=== PATIENT | male | born 2000 | race Two or more races ===

== ENCOUNTER 2025-03-07 08:44 | Emergency (ER) | payer OTHER, SELFPAY ==
[2025-03-07 08:46] VITALS: BP 110/75; PULSE 59; RESP 14; TEMP 36.5; O2SAT 99
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
[2025-03-07 08:51] VITALS: PULSE 60; O2SAT 90; BMI 25.8
[2025-03-07 09:02] VITALS: BP 115/82; PULSE 72; RESP 19; TEMP 36.5; O2SAT 100
[2025-03-07 09:04] VITALS: BP 115/82; TEMP 36
[2025-03-07] MEDS: levETIRAcetam INJ 100 MG/ML VIAL 5ML 1000 MG IVP (09:15)
--- NOTE | 2025-03-07 09:22 | PC.NURSE ---
PT BROUGHT IN BY EMS FROM [facility]. ACCORDING TO STAFF, THEY WITNESSED MULTIPLE SEIZURE LASTING FOR 10 TO 20 SEC. PT ON SEIZURE PRECAUTIONS.
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
--- NOTE | 2025-03-07 09:27 | PC.NURSE ---
0735: FIRST SEIZURE, LASTED 20 SEC 0736: SECOND SEIZURE, LASTED 7 SEC 0805: THIRD SEIZURE, LASTED 20 SEC 0806: FOURTH SEIZURE, LASTED 15 SEC 0807: FIFTH SEIZURE, LASTED 12 SEC 0808: SIXTH SEIZURE, LASTED 12 SEC 0809: SEVENTH SEIZURE LASTED 15 SEC 0817: EIGHT SEIZURE, LASTED 10 SEC
[2025-03-07 09:30] LABS: Collection Type, Urine Catheter; Squamous Epithelial Cell,Urine 0 /hpf (0-5)
[2025-03-07] MEDS: SODIUM CHLORIDE 0.9% 1000 ML 1,000 ML 200 ML IV (09:34)
[2025-03-07 09:51] LABS: Bacteria,Urine Rare; Bilirubin,Urine Negative (Negative); Blood,Urine Negative (Negative); Color,Urine Yellow (Lt Yel-Yel); Culture Indicated,Urine Not Indicated; Glucose, Urine Negative (Negative); Ketones,Urine Negative (Negative); Leukocyte Esterase,Urine Negative (Negative); Nitrite,Urine Negative (Negative); PH,Urine 6.5 (5.0-7.0); Protein,Urine Negative (Neg - Trace); RBC,Urine 2 /hpf (0-3); Specific Gravity,Urine 1.019 (1.001-1.035); Urobilinogen,Urine Negative mg/dL (0.0-1.0); WBC,Urine 2 /hpf (0-5)
[2025-03-07 09:55] LABS: Clarity,Urine Hazy (Clear/Hazy)
[2025-03-07 10:02] LABS: Lactate (Lactic Acid) 2.1 mMol/L (0.4-2.0)
[2025-03-07 10:09] LABS: Basophils % (Auto) 1 % (0-2.5); Eosinophils # (Auto) 0.3 Thou/mm3 (0.0-0.5); Eosinophils % (Auto) 5 % (0-10); Hematocrit 39.5 % (41.0-53.0); Hemoglobin 13.8 g/dL (13.5-16.0); Immature Granulocytes % (Auto) 0 % (0-0); Immature Granulocytes Auto 0.01 Thou/mm3 (0.00-0.00); Lymphocytes # (Auto) 1.1 Thou/mm3 (1.0-4.8); Lymphocytes % (Auto) 21 % (10-50); Mean Corpuscular HGB Conc 34.9 g/dl (31.0-37.0); Mean Corpuscular Hemoglobin 29.9 pg (25.0-35.0); Mean Corpuscular Volume 86 fL (80-100); Monocytes # (Auto) 0.4 Thou/mm3 (0.0-0.8); Monocytes % (Auto) 8 % (0-12); Neutrophils # (Auto) 3.5 Thou/mm3 (1.8-7.7); Neutrophils % (Auto) 66 % (37-80); Nucleated Red Blood Cell % 0 /100 WBC (0); Platelet Count 174 Thou/mm3 (140-440); RDW Standard Deviation 39.7 fL (35.1-43.9); Red Blood Count 4.61 Miln/mm3 (4.50-5.90); White Blood Count 5.3 Thou/mm3 (3.8-10.6)
[2025-03-07 10:44] LABS: Alanine Aminotransferase 17 U/L (10-49); Albumin, Serum 4.1 gm/dL (3.5-5.0); Albumin/Globulin Ratio 1.8 (1.2-2.2); Alkaline Phosphatase 56 U/L (46-116); Anion Gap 9 (7-16); Aspartate Amino Transferase 25 U/L (0-34); BUN/Creatinine Ratio 9 Ratio (12-20); Blood Urea Nitrogen 6 mg/dL (9-23); Calcium 8.8 mg/dL (8.3-10.6); Calcium (Corrected) 8.8 mg/dL (8.5-10.1); Carbon Dioxide 27.8 mMol/L (20.0-31.0); Chloride 106 mMol/L (98-107); Creatinine (Component) 0.7 mg/dL (0.6-1.3); Estimated Creatinine Clearance 148.1 mL/min (>60); Globulin 2.3 gm/dL (2.3-3.5); Glucose 84 mg/dL (74-106); Osmolality,Calculated 281 (275-295); Potassium 3.4 mMol/L (3.4-5.1); Sodium 143 mMol/L (136-145); Total Protein 6.4 gm/dL (5.7-8.2); eGFR > 60 See Note
[2025-03-07 11:25] LABS: Base Excess, Venous 2 (-3-3); O2 Saturation, Venous 68 % (96-97); PCO2, Venous 63 mmHg (36-56); PO2, Venous 38 mmHg (15-58); pH, Venous 7.29 (7.33-7.66)
[2025-03-07 11:28] LABS: Amphetamine/Methamp Scrn,U Positive (Negative); Barbiturate Screen,Urine Negative (Negative); Benzodiazepines Screen,Urine Negative (Negative); Benzoylecgonine Screen, Ur Negative (Negative); Fentanyl Screen,Urine Negative (Negative); Opiate Screen,Urine Negative (Negative); THC Screen,Urine Positive (Negative)
[2025-03-07 11:36] VITALS: BP 108/65; PULSE 58; RESP 16; O2SAT 100
--- NOTE | 2025-03-07 12:02 | PC.NURSE ---
PT WALKED WITH DR. Miranda WITHOUT ASSISTANCE, PT DOES NOT REPORT SOB. PT DRANK JUICE AND ATE JELLO WITHOUT COUCHING OR CHOKING.
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
[2025-03-07 12:45] VITALS: BP 116/77; PULSE 82; O2SAT 99
[2025-03-07 12:55] LABS: Reflex Lactate? Y
== END 2025-03-07 12:45 ==
PROVIDERS: Emergency Provider Emergency Medicine
DX: R41.82 Altered mental status, unspecified (principal); R56.9 Unspecified convulsions; F15.10 Other stimulant abuse, uncomplicated; F12.90 Cannabis use, unspecified, uncomplicated; R07.81 Pleurodynia; K13.79 Other lesions of oral mucosa; Y04.8XXA Assault by other bodily force, initial encounter; Z91.199 Patient's noncompliance with other medical treatment and regimen due to unspecified reason; Z65.3 Problems related to other legal circumstances
CPT/HCPCS: 36415; 70450; 71045; 80053; 80307; 81001; 82803; 83605; 85025; 87040; 96361; 96374; 99284; J1953; J7030

== ENCOUNTER 2025-03-09 11:30 | Emergency (ER) | payer OTHER, SELFPAY ==
[2025-03-09 11:39] VITALS: BP 124/80; PULSE 92; RESP 16; TEMP 36.7; O2SAT 99
--- NOTE | 2025-03-09 12:07 | EDNOTE_ITS ---
<Statement entered by Ifrah Corona MD - 03/10/25 14:29> As co-signing physician, I was present and available for consult prn. I concur with the plan and care as documented by the midlevel provider. ED General RME/HPI General Chief complaint: Seizure Stated complaint: SEIZURE Time Seen by Provider: 03/09/25 11:35 Arrival date/time: 03/09/25 11:30 RME / HPI RME / HPI narrative: 24-year-old male patient was brought in for evaluation regarding possible seizure. Apparently patient was in the court house, and developed possible tonic-clonic seizure lasting for less than 1 minute. Per EMS patient was sitt ing on the ground. Patient was noted to be awake and oriented right away. There was no confusion noted. While waiting in the lobby patient was noted to be on the ground and having tonic-clonic shaking. With sternal rub the patient and patient woke up right away. Patient stand up and sit back to the wheelchair. Related Data Home Medications ?Medication ?Instructions ?Recorded ?Confirmed No Known Home Medications 03/08/1801/14 Allergies Allergy/AdvReac Type Severity Reaction Status Date / Time No Known Allergies Allergy Verified 02/04/20 15:10 Review of Systems Review of Systems Narrative Review of Systems: Review of system reviewed and within normal limits except mentioned in HPI ED Exam Narrative Physical exam: VITAL SIGNS: Reviewed. GENERAL APPEARANCE: Alert and interactive, follows commands, no acute distress, HEAD AND FACE: Non-traumatic. ENT: PERRL, pink conjunctivitis, eyelid no trauma, Mucous membrane moist. NECK: Supple, nontender, no nuchal rigidity. CHEST: No tenderness, no crepitus, no paradoxical movement, no retractions. LUNGS: Clear, well ventilated, symmetric, no rales, no wheezing, no ronchi, no stridor, good breath sounds bilaterally. HEART: Regular rate, regular rhythm, no murmur, no gallops. ABDOMEN: Soft, positive bowel sounds, nondistended, no guarding, nontender, no rebound, no masses, RECTAL: Deferred. GENITAL: Deferred. NEUROLOGICAL: Gross motor function intact sensory function intact, Appropriate for age. MUSCULOSKELETAL: low back nontender, full range of motion. EXTREMITIES: Nontender, full range of motion. SKIN: Color pink, dry, no rash, no lacerations, no abrasions, no contusions. LYMPHATICS: Deferred. Course Quality Measures none Orders Category Date Time Status EKG (ED ONLY) *Do not use* NOW Care 03/09/25 12:12 Completed EKG (ED Only) Stat Exams 03/09/25 12:12 Draft CBC [CBC] Stat Lab 03/09/25 12:33 Completed CMP [Comprehensive Metabolic Panel] Stat Lab 03/09/25 12:33 Completed Lactate (Lactic Acid) Stat Lab 03/09/25 12:33 Completed Acetaminophen Tab [Tylenol ES Tab] Med 03/09/25 12:03 Discontinued 1,000 mg PO X1 ONE Vital Signs Vital signs: Vital Signs Temperature 98.1 F 03/09/25 11:39 Pulse Rate 92 03/09/25 11:39 Respiratory Rate 16 03/09/25 11:39 Blood Pressure 124/80 03/09/25 11:39 Pulse Oximetry (%) 99 03/09/25 11:39 Oxygen Delivery Method Room Air 03/09/25 11:39 Discharge Plan Plan Patient Disposition: HOME (Self Care) Disposition Comment: stable Prescriptions/Referrals Prescriptions/Med Rec: No Action No Known Home Medications Referrals: No Primary/Family,Physician [Primary Care Provider] - In 1 week Problem List Clinical Impression: Intention tremor, Headache Patient/Caregiver Discharge Instructions Education Materials: Self-Care for Headaches Additional Instructions: Thank you for the opportunity for serving you today. You are stable for discharged . You are advised to: Follow-up with your PCP in 1 to 2 days for your headache You are not having seizure disorder, but you are having is a pseudoseizure, which is voluntary shaking/fake seizure You may take Tylenol as needed for headache Print Language: Albanian Stand Alone Forms: Karin Award Info., Patient Portal Info Letter CARSON/CHRISTOPHER Supervising Physician CARSON/CHRISTOPHER Supervising Physician: MD Chloe [facility] Patient Acuity Narrative: 24-year-old male patient was brought in for evaluation regarding possible seizure. Apparently patient was in the court house, and developed possible tonic-clonic seizure lasting for less than 1 minute. Per EMS patient was sitting on the ground. Patient was noted to be awake and oriented right away. There was no confusion noted. While waiting in the lobby patient was noted to be on the ground and having tonic-clonic shaking. With sternal rub the patient and patient woke up right away. Patient stand up and sit back to the wheelchair. On multiple rib evaluation patient is not having signs of true seizures. When I witnessed him having possible seizure in the floor we did sternal rub him and he wake up right away. He is not having any postictal confusion. Patient's workup including lactic acid all came back normal I reviewed patient's CT scan that was done 2 days ago and also came back normal patient is having pseudoseizure or faking a seizure. Patient is medically cleared to go back to detention Medication Administration(s) Medication Administration History Discontinued Medications Acetaminophen (Acetaminophen 500 Mg Tablet) 1,000 mg PO X1 ONE Stop: 03/09/25 12:04 Last Admin: 03/09/25 12:38 Dose: 1,000 mg Documented By: CL Diagnosis Differential Diagnosis ED Complaint MDM: Seizure pseudoseizure headache Diagnoses ruled out: intention tremor, headache
--- NOTE | 2025-03-09 12:12 | EKG_ITS ---
[facility] Test Date: 2025-03-09 Pat Name: SHANNON JONAS Department: Room: - Gender: Male Assistant To The Dean: : 2000 Requested By: Terry Salcido Order Number: [id number] Reading MD: Terry Salcido Measurements Intervals [place] Rate: 72 P: 82 AK: 136 QRS: 83 QRSD: 89 T: 77 QT: 370 QTc: 407 Interpretive Statements SINUS RHYTHM Compared to ECG 02/15/2020 15:02:22 No significant changes /[id number]/S0/[id number].pdf
[2025-03-09 12:15] VITALS: BMI 25.8
[2025-03-09] MEDS: ACETAMINOPHEN 500 MG TABLET 1000 MG PO (12:38)
[2025-03-09 12:50] LABS: Lactate (Lactic Acid) 1.5 mMol/L (0.4-2.0)
[2025-03-09 13:05] LABS: Basophils % (Auto) 0 % (0-2.5); Eosinophils # (Auto) 0.1 Thou/mm3 (0.0-0.5); Eosinophils % (Auto) 1 % (0-10); Hematocrit 44.7 % (41.0-53.0); Hemoglobin 16.1 g/dL (13.5-16.0); Immature Granulocytes % (Auto) 0 % (0-0); Immature Granulocytes Auto 0.02 Thou/mm3 (0.00-0.00); Lymphocytes # (Auto) 0.8 Thou/mm3 (1.0-4.8); Lymphocytes % (Auto) 10 % (10-50); Mean Corpuscular Hemoglobin 30.3 pg (25.0-35.0); Mean Corpuscular Volume 84 fL (80-100); Monocytes # (Auto) 0.5 Thou/mm3 (0.0-0.8); Monocytes % (Auto) 7 % (0-12); Neutrophils # (Auto) 6.2 Thou/mm3 (1.8-7.7); Neutrophils % (Auto) 82 % (37-80); Nucleated Red Blood Cell % 0 /100 WBC (0); Platelet Count 192 Thou/mm3 (140-440); RDW Standard Deviation 38.5 fL (35.1-43.9); Red Blood Count 5.31 Miln/mm3 (4.50-5.90); White Blood Count 7.6 Thou/mm3 (3.8-10.6)
[2025-03-09 13:18] LABS: Alanine Aminotransferase 16 U/L (10-49); Albumin, Serum 4.6 gm/dL (3.5-5.0); Albumin/Globulin Ratio 1.7 (1.2-2.2); Alkaline Phosphatase 62 U/L (46-116); Anion Gap 8 (7-16); Aspartate Amino Transferase 24 U/L (0-34); BUN/Creatinine Ratio 6 Ratio (12-20); Blood Urea Nitrogen 5 mg/dL (9-23); Calcium 9.6 mg/dL (8.3-10.6); Calcium (Corrected) 9.6 mg/dL (8.5-10.1); Carbon Dioxide 28.5 mMol/L (20.0-31.0); Chloride 104 mMol/L (98-107); Creatinine (Component) 0.8 mg/dL (0.6-1.3); Estimated Creatinine Clearance 129.6 mL/min (>60); Globulin 2.7 gm/dL (2.3-3.5); Glucose 98 mg/dL (74-106); Osmolality,Calculated 276 (275-295); Potassium 4.5 mMol/L (3.4-5.1); Sodium 140 mMol/L (136-145); Total Protein 7.3 gm/dL (5.7-8.2); eGFR > 60 See Note
== END 2025-03-09 15:15 | disposition home or self-care (01) ==
PROVIDERS: Nurse Practitioner Family; Emergency Provider Emergency Medicine
DX: G25.2 Other specified forms of tremor (principal); R51.9 Headache, unspecified
CPT/HCPCS: 36415; 80053; 80307; 81001; 83605; 85025; 93005; 99283; A9270